=== PATIENT | male | born 1990 | race Caucasian/White ===

== ENCOUNTER 2016-12-01 23:38 | Emergency (ER) | payer BC ==
--- NOTE | 2016-12-01 23:52 | ER Document Report ---
ED Allergic Reaction - General Mode of Arrival: Ambulatory Information source: Patient - HPI Similar symptoms previously: No Recently seen / treated by doctor: No - General Stated Complaint: POSSIBLE ALLERGIC REACTION Notes: Patient is a 26 year old male presenting to the ED for a possible allergic reaction. Patient states he ate dinner around 18:00 and went to bed. Patient had mac&cheese and pork sandwiches. Patient states he went to bed around 21:00 and woke up feeling very sick to his stomach so he went outside and vomited. Patient then continued to vomit and dry heave. Patient started having some shortness of breath when he called for help and family then administered epi via the patient's epipen. Patient denies any hives, swelling, or itchy throat. Patient states he was feeling better after arriving to the ED. Patient was brought in via EMS. Patient is allergic to peanuts but he didn't eat any peanuts. Patient is on vacation from [place] and is leaving on a 6:00 am flight on 12/02/16 to go back home. Patient states he always carries an epipen on him since he was little due to an allergic reaction when he was a child to peanuts. (MYRIAM HOPKINS) - Related Data Allergies/Adverse Reactions: peanut Allergy (Severe, Verified 12/02/16 01:34) Anaphylaxis Past Medical History - General Information source: Patient - Social History Smoking Status: Never Smoker Family History: None Patient has suicidal ideation: No Patient has homicidal ideation: No Review of Systems - Review of Systems Constitutional: No symptoms reported EENT: No symptoms reported Cardiovascular: No symptoms reported Respiratory: See HPI, Short of breath Gastrointestinal: See HPI, Abdominal pain, Nausea, Vomiting Genitourinary: No symptoms reported Male Genitourinary: No symptoms reported Musculoskeletal: No symptoms reported Skin: No symptoms reported Hematologic/Lymphatic: No symptoms reported Neurological/Psychological: No symptoms reported -: Yes All other systems reviewed and negative Physical Exam - Vital signs Interpretation: Hypertensive - Vital signs Vitals: Resp BP Pulse Ox 18 140/100 H 99 12/02/16 00:01 12/02/16 00:01 12/02/16 00:01 Resp BP Pulse Ox 18 140/100 H 99 12/02/16 00:01 12/02/16 00:01 12/02/16 00:01 (MYRIAM HOPKINS) - Notes Notes: GENERAL: Alert, interacts well. Mild distress. HEAD: Normocephalic, atraumatic. EYES: Appear normal. Pupils equal, round, and reactive to light. ENT: Moist mucus membranes, tongue midline. Oropharynx is clear with no signs of swelling. NECK: Full range of motion. Supple. Trachea midline. LUNGS: Clear to auscultation bilaterally, no wheezes, rales, or rhonchi. No trismus or stridor. No respiratory distress. HEART: Regular rate and rhythm. No murmurs, gallops, or rubs. ABDOMEN: Soft, non-tender. Non-distended. Normal bowel sounds. EXTREMITIES: Moves all 4 extremities spontaneously. Normal strength. No edema. NEUROLOGICAL: Alert and oriented x3. Normal speech. No focal neurological deficits. GSC 15. PSYCH: Normal affect, normal mood. SKIN: Warm, dry, normal turgor. No rashes or lesions noted. (MYRIAM HOPKINS) Discharge - Discharge Clinical Impression: Acute allergic reaction Condition: Stable Disposition: HOME, SELF-CARE Additional Instructions: You have been seen and evaluated for an allergic reaction that you have administered epinephrine for. He had a history of peanut allergy but is uncertain exactly what you are allergic to night. I have written for you to get an EpiPen at a pharmacy in [place] called and made sure that they have one available that you can take the prescription to [facility] in [place] before you board the plane to [place] tomorrow. I want you to follow-up with your primary care physician in 1-2 days keep the EpiPen on hand as we have discussed reasons for juices and return for increasing worsening or new symptoms Prescriptions: Epinephrine [Epipen Jr 0.15 mg/0.3 mL AutoInject] 1 ea IM ASDIR PRN #1 autoinjector PRN Reason: Scribe Attestation: 12/02/16 02:18 I personally performed the services described in the documentation reviewed the documentation recorded by my scribe in my presence and it accurately and completely records my words and actions (JOHNY GABRIEL) Scribe Documentation - Scribe Written by Scribe:: Ron Alcala, 12/02/16 5:07 acting as scribe for :: Burt
[2016-12-02] MEDS ORDERED: ONDANSETRON ODT 4 MG TAB (6 TAB/DSPK) PO PRN (02:25)
[2016-12-02 02:41] VITALS: BP 134/75
== END 2016-12-02 02:46 | disposition home or self-care (01) ==
LOC: ER 23:38
DX: T78.40XA Allergy, unspecified, initial encounter (principal); R11.10 Vomiting, unspecified; R10.9 Unspecified abdominal pain; Z91.010 Allergy to peanuts; X58.XXXA Exposure to other specified factors, initial encounter
CPT/HCPCS: 99283